=== PATIENT | female | born 2000 | race Caucasian/White ===

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

== ENCOUNTER 2019-02-04 19:27 | Emergency (ER) | payer MEDICAID ==
--- NOTE | 2019-02-04 21:08 | ER Document Report ---
ED Medical Screen (RME) - General Chief Complaint: Abdominal Pain Stated Complaint: ABDOMINAL PAIN Time Seen by Provider: 02/04/19 21:00 Notes: Patient is a 18-year-old female presents to the emergency department with a chief complaint of epigastric and right upper quadrant pain. Patient states she was seen here on January 26 for the same symptoms and was given Bentyl. Patient states she has been taking the Bentyl without relief. Patient states the epigastric and right upper quadrant pain is worse after eating. Patient states she has had nausea without vomiting. Patient reports intermittent diarrhea but has not had any episodes of diarrhea today. Patient denies fever. Patient denies urinary symptoms. Patient reports she has had her appendix removed. Patient states she does get intermittent acid reflux but has not had any issues with this over the past 2 weeks. TRAVEL OUTSIDE OF THE [place] IN LAST 30 DAYS: No - Related Data Allergies/Adverse Reactions: azithromycin Allergy (Verified 01/26/19 07:55) Penicillins Allergy (Verified 01/26/19 07:55) Past Medical History Renal/ Medical History: Reports: Hx Kidney Stones. Denies: Hx Peritoneal Dialysis Past Surgical History: Reports: Hx Appendectomy - Immunizations Immunizations up to date: Yes Hx Diphtheria, Pertussis, Tetanus Vaccination: Yes Physical Exam - Vital signs Vitals: Temp Pulse Resp BP Pulse Ox 98.7 F 83 15 119/68 98 02/04/19 19:33 02/04/19 19:33 02/04/19 19:33 02/04/19 19:33 02/04/19 19:33 - Abdominal Inspection: Normal Distension: No distension Bowel sounds: Normal Tenderness: Tender - Tenderness in RUQ and epigastric area Course - Re-evaluation Re-evalutation: 02/04/19 21:07 Upon initial assessment in triage patient sitting upright in chair, nontoxic- appearing, in no acute distress. Will initiate the appropriate blood work and urinalysis. I have greeted and performed a rapid initial assessment of this patient. A comprehensive ED assessment and evaluation of the patient, analysis of test results and completion of the medical decision making process will be conducted by additional ED providers. - Vital Signs Vital signs: Temp Pulse Resp BP Pulse Ox 98.7 F 83 15 119/68 98 02/04/19 19:33 02/04/19 19:33 02/04/19 19:33 02/04/19 19:33 02/04/19 19:33
[2019-02-04 21:32] LABS: ABSOLUTE EOSINOPHILS # (AUTO) 0.3 10^3/uL (0.0-0.6); ABSOLUTE LYMPHOCYTES (AUTO) 2.8 10^3/uL (0.5-4.7); ABSOLUTE MONOCYTES (AUTO) 0.6 10^3/uL (0.1-1.4); ABSOLUTE NEUT (AUTO) 3.2 10^3/uL (1.7-8.2); BASOPHILS % (AUTO) 0.4 % (0-2); EOSINOPHILS % (AUTO) 4.3 % (0-6); HEMATOCRIT 41.7 % (36.0-47.0); LYMPHOCYTES % (AUTO) 40.6 % (13-45); MEAN CORPUSCULAR HEMOGLOBIN 27.1 pg (27.0-33.4); MEAN CORPUSCULAR HGB CONC 33.5 g/dL (32.0-36.0); MEAN CORPUSCULAR VOLUME 81 fl (80-97); MONOCYTES % (AUTO) 8.1 % (3-13); PLATELET COUNT 196 10^3/uL (150-450); RED BLOOD COUNT 5.16 10^6/uL (3.72-5.28); RED CELL DISTRIBUTION WIDTH 14.5 % (11.5-14.0); SEGMENTED NEUTROPHILS % (AUTO) 46.6 % (42-78); TOTAL CELLS COUNTED % (AUTO) 100 %; WHITE BLOOD COUNT 6.9 10^3/uL (4.0-10.5)
[2019-02-04 21:50] LABS: ALANINE AMINOTRANSFERASE 21 U/L (5-35); ALBUMIN 4.4 g/dL (3.7-5.6); ALKALINE PHOSPHATASE 57 U/L (50-135); ANION GAP 10 (5-19); ASPARTATE AMINO TRANSFERASE 24 U/L (5-30); BILIRUBIN,DIRECT 0.2 mg/dL (0.0-0.4); BILIRUBIN,TOTAL 0.6 mg/dL (0.2-1.3); BLOOD UREA NITROGEN 13 mg/dL (7-20); CALCIUM 9.3 mg/dL (8.4-10.2); CARBON DIOXIDE 25 mmol/L (22-30); CHLORIDE 105 mmol/L (98-107); GLUCOSE 97 mg/dL (75-110); LIPASE 132.2 U/L (23-300); POTASSIUM 4.1 mmol/L (3.6-5.0); SODIUM 139.6 mmol/L (137-145); TOTAL PROTEIN 7.2 g/dL (6.3-8.2)
[2019-02-04 22:03] LABS: APPEARANCE,URINE SLIGHTLY-CLOUDY; BILIRUBIN,URINE NEGATIVE (NEGATIVE); COLOR,URINE YELLOW; GLUCOSE, URINE NEGATIVE (NEGATIVE); KETONES,URINE NEGATIVE (NEGATIVE); LEUKOCYTE ESTERASE,URINE NEGATIVE (NEGATIVE); NITRITE,URINE NEGATIVE (NEGATIVE); PROTEIN,URINE NEGATIVE (NEGATIVE); URINE SPECIFIC GRAVITY 1.021; UROBILINOGEN,URINE NEGATIVE mg/dL (<2.0)
--- NOTE | 2019-02-04 22:34 | ER Document Report ---
ED General - General Chief Complaint: Abdominal Pain Stated Complaint: ABDOMINAL PAIN Time Seen by Provider: 02/04/19 21:00 Notes: Patient is a 18-year-old female presents with complaint of upper abdominal pain. She says that she is epigastric sharp and burning pain. Symptoms are going to right upper quadrant. Sometimes she will have some pain into the right shoulder blade. She says pain occurs mostly with eating. No vomiting. No nausea. No diarrhea. She was seen here a few weeks ago and placed on Bentyl and told to take ibuprofen or Aleve for pain. She says her pain is continued therefore she is come back to the ER. She currently has no other complaints at this time. TRAVEL OUTSIDE OF THE [place] IN LAST 30 DAYS: No - Related Data Allergies/Adverse Reactions: azithromycin Allergy (Verified 01/26/19 07:55) Penicillins Allergy (Verified 01/26/19 07:55) Past Medical History - Social History Smoking Status: Never Smoker Chew tobacco use (# tins/day): No Frequency of alcohol use: None Drug Abuse: None Family History: Reviewed & Not Pertinent Patient has suicidal ideation: No Patient has homicidal ideation: No Renal/ Medical History: Reports: Hx Kidney Stones. Denies: Hx Peritoneal Dialysis Past Surgical History: Reports: Hx Appendectomy - Immunizations Immunizations up to date: Yes Hx Diphtheria, Pertussis, Tetanus Vaccination: Yes Review of Systems - Review of Systems Notes: My Normal Review Basic REVIEW OF SYSTEMS: CONSTITUTIONAL : Denies fever, chills, or sweats. Denies recent illness. CARDIOVASCULAR: Denies chest pain. RESPIRATORY: Denies cough, cold, or chest congestion. Denies shortness of breath, difficulty breathing, or wheezing. GASTROINTESTINAL: Upper abdominal pain. Some nausea. No vomiting. GENITOURINARY: Denies difficulty urinating, painful urination, burning, frequency, or blood in urine. FEMALE GENITOURINARY: Denies vaginal bleeding, abnormal or irregular periods. MUSCULOSKELETAL: Denies neck or back pain or joint pain or swelling. SKIN: Denies rash or skin lesions. NEUROLOGICAL: Denies altered mental status or loss of consciousness. Denies headache. Denies weakness or paralysis or loss of use of either side. Denies problems with gait or speech. Denies sensory or motor loss. ALL OTHER SYSTEMS REVIEWED AND NEGATIVE. Physical Exam - Vital signs Vitals: Temp Pulse Resp BP Pulse Ox 98.7 F 83 15 119/68 98 02/04/19 19:33 02/04/19 19:33 02/04/19 19:33 02/04/19 19:33 02/04/19 19:33 - Notes Notes: General Appearance: Well nourished, alert, cooperative, no acute distress, no obvious discomfort. Well-appearing. Vitals: reviewed, See vital signs table. Head: no swelling or tenderness to the head Eyes: PERRL, EOMI, Conjuctiva clear Mouth: No decreasd moisture Lungs: No wheezing, No rales, No rhonci, No accessory muscle use, good air exchange bilaterally. Heart: Normal rate, Regular rythm, No murmur, no rub Abdomen: Normal BS, soft, No rigidity, moderate right upper quadrant and epigastric tenderness to palpation., No guarding, no rebound, no abdominal masses, no organomegaly Extremities: good pulses in all extremities, no swelling or tenderness in the extremities, no edema. Skin: warm, dry, appropriate color, no rash Neuro: speech clear, oriented x 3, normal affect, responds appropriately to questions. Course - Re-evaluation Re-evalutation: 02/05/19 00:26 Continues look well and feels well. Her ultrasound did not show any overt concerning findings for gallbladder. The wall was equivocal but otherwise there is no stones anything else. I feel the patient is safe to be discharged home. I suspect she has gastritis or bili dyskinesia. I informed her that we will treat her for gastritis and see if her symptoms improve. If they are not improving within a week then she is to follow-up with surgery clinic for further work-up for biliary dyskinesia. I strongly encouraged her return to the ER immediately if she has worsening pain, fevers, vomiting, or feels like she is worsening in any way. Patient agrees with plan and will be discharged home. Dictation of this chart was performed using voice recognition software; therefore, there may be some unintended grammatical errors. - Vital Signs Vital signs: Temp Pulse Resp BP Pulse Ox 98.4 F 70 16 105/64 100 02/05/19 00:04 02/05/19 00:04 02/05/19 00:04 02/05/19 00:04 02/05/19 00:04 - Laboratory Result Diagrams: 02/04/19 21:21 02/04/19 21:21 Laboratory results interpreted by me: 02/04/19 21:21 RDW 14.5 H Discharge - Discharge Clinical Impression: Abdominal pain Qualifiers: Abdominal location: upper abdomen, unspecified Qualified Code(s): R10.10 - Upper abdominal pain, unspecified Condition: Good Disposition: HOME, SELF-CARE Additional Instructions: Your blood work did not show any concerning findings. Your ultrasound looking at your gallbladder did not show any concerning abnormalities with the gallbladder. I suspect that most likely your pain is related to gastritis or nonbleeding ulcer in your stomach. This will cause pain when you eat and drink and also cause you to vomit. Please buy [id number] omeprazole. This is the generic of Prilosec. Please take 20 mg of omeprazole every day for 2 weeks. After 2 weeks you should switch to Pepcid 20 mg a day. I have prescribed Carafate. You can start taking the Carafate if you are not having improvement of your pain after 2-3 days of treatment with the omeprazole. Diet is extremely important in treating this. Please drink non-caffeinated nonacidic fluids for the next 24 hours. After 24 hours you can start eating food again. Please avoid anything that spicy, acidic, or fatty or fried. Please eat only very bland foods such as bread or rice. Please avoid smoking. Please avoid coffee and tea. Please return to the ER immediately if you have worsening pain, fevers, intractable vomiting, or if you ever have any vomiting of blood or black or tarry stools.Avoid any NSAID use such as advil, ibuprofen, motrin, aleve, or naprosyn. Tylenol is safe to take. Pain could also be related to biliary dyskinesia. This is where your gallbladder spasms every time you eat. If you are not having improvement in your symptoms after taking the prescribed medications for 1 week then you should follow-up with the surgery clinic. Phone number to the surgery clinic is under the name "Dr. Riojas" in your discharge paperwork. They can evaluate you and determine if further studies are needed to further evaluate your gallbladder. Please have a low threshold to return to ER if you have worsening pain, fevers, intractable vomiting, or feel like you are worsening in any way. Prescriptions: Sucralfate [Carafate] 1 gm PO ACHS 7 Days oral.susp Forms: Return to Work Referrals: DEE RIOJAS MD [ACTIVE STAFF] - Follow up in 1 week
[2019-02-05 00:15] VITALS: BP 105/64
--- NOTE | 2019-02-05 00:15 | RADIOLOGY REPORT (SQ) ---
EXAM DESCRIPTION: US ABDOMEN DOPPLER LIMITED COMPLETED DATE/TME: 02/04/2019 22:33 CLINICAL HISTORY: 18 years, Female, RUQ abdominal pain COMPARISON: None. TECHNIQUE: Matuet scale sonography of the right upper quadrant abdomen. LIMITATIONS: None. FINDINGS: LIVER: Within normal limits morphology and echogenicity measuring 15.3 cm. GALLBLADDER: Contracted appearance of the gallbladder with equivocal findings for gallbladder wall thickening. No pericholecystic fluid or cholelithiasis. Negative sonographic Sky's sign. BILIARY TRACT: No significant abnormalities noted. The common bile duct measures 3 mm. PANCREAS: Limited evaluation secondary to partial obscuration by overlying bowel gas otherwise within normal limits. KIDNEY: The RIGHT kidney is within normal limits of morphology and echogenicity measuring 10.4 x 3.6 x 5.0 cm. IMPRESSION: 1. Contracted appearance of the gallbladder with equivocal findings for gallbladder wall thickening. 2. No specific sonographic findings noted to suggest etiology of the patient's symptoms. copyright 2010 [employer]- All Rights Reserved
== END 2019-02-05 00:37 | disposition home or self-care (01) ==
LOC: ER 19:27
DX: R10.13 Epigastric pain (principal); R10.816 Epigastric abdominal tenderness; R10.811 Right upper quadrant abdominal tenderness; M89.8X1 Other specified disorders of bone, shoulder; R11.0 Nausea; Z88.1 Allergy status to other antibiotic agents; Z88.0 Allergy status to penicillin; Z87.442 Personal history of urinary calculi; Z90.49 Acquired absence of other specified parts of digestive tract
CPT/HCPCS: 36415; 76705; 80053; 81001; 81025; 83690; 85025; 93976; 99284

== ENCOUNTER 2019-04-12 21:28 | Emergency (ER) | payer MEDICAID ==
--- NOTE | 2019-04-12 21:47 | ER Document Report ---
ED Medical Screen (RME) - General Chief Complaint: Abdominal Cramping Stated Complaint: ABDOMINAL PAIN Time Seen by Provider: 04/12/19 21:42 Mode of Arrival: Ambulatory Information source: Patient Notes: 18-year-old female presents emergency department with abdominal cramps for the past 2 days. Reports urinary frequency and pain with void. Also is unsure if she is . Denies fever vomiting but reports some nausea and diarrhea. Reports she used some Midol without relief of symptoms. Declines Motrin at this time. Dictation of this chart was performed using voice recognition software; therefore, there may be some unintended grammatical errors. I have greeted and performed a rapid initial assessment of this patient. A comprehensive ED assessment and evaluation of the patient, analysis of test results and completion of the medical decision making process will be conducted by additional ED providers. TRAVEL OUTSIDE OF THE [place] IN LAST 30 DAYS: No - Related Data Allergies/Adverse Reactions: azithromycin Allergy (Verified 01/26/19 07:55) Penicillins Allergy (Verified 01/26/19 07:55) Past Medical History Renal/ Medical History: Reports: Hx Kidney Stones. Denies: Hx Peritoneal Dialysis Past Surgical History: Reports: Hx Appendectomy - Immunizations Immunizations up to date: Yes Hx Diphtheria, Pertussis, Tetanus Vaccination: Yes Physical Exam - Vital signs Vitals: Temp Pulse Resp BP Pulse Ox 98.0 F 75 18 113/75 99 04/12/19 21:34 04/12/19 21:34 04/12/19 21:34 04/12/19 21:34 04/12/19 21:34 Course - Vital Signs Vital signs: Temp Pulse Resp BP Pulse Ox 98.0 F 75 18 113/75 99 04/12/19 21:34 04/12/19 21:34 04/12/19 21:34 04/12/19 21:34 04/12/19 21:34
[2019-04-12 22:11] LABS: ABSOLUTE BASOPHILS # (AUTO) 0.1 10^3/uL (0.0-0.2); ABSOLUTE EOSINOPHILS # (AUTO) 0.3 10^3/uL (0.0-0.6); ABSOLUTE LYMPHOCYTES (AUTO) 3.4 10^3/uL (0.5-4.7); ABSOLUTE MONOCYTES (AUTO) 0.5 10^3/uL (0.1-1.4); ABSOLUTE NEUT (AUTO) 3.8 10^3/uL (1.7-8.2); BASOPHILS % (AUTO) 0.9 % (0-2); EOSINOPHILS % (AUTO) 4.1 % (0-6); HEMOGLOBIN 13.5 g/dL (12.0-15.5); LYMPHOCYTES % (AUTO) 42.2 % (13-45); MEAN CORPUSCULAR HEMOGLOBIN 27.3 pg (27.0-33.4); MEAN CORPUSCULAR HGB CONC 33.6 g/dL (32.0-36.0); MEAN CORPUSCULAR VOLUME 81 fl (80-97); MONOCYTES % (AUTO) 5.8 % (3-13); PLATELET COUNT 220 10^3/uL (150-450); RED BLOOD COUNT 4.92 10^6/uL (3.72-5.28); RED CELL DISTRIBUTION WIDTH 13.9 % (11.5-14.0); TOTAL CELLS COUNTED % (AUTO) 100 %; WHITE BLOOD COUNT 8.1 10^3/uL (4.0-10.5)
[2019-04-12 22:22] LABS: ALBUMIN 4.1 g/dL (3.7-5.6); ALKALINE PHOSPHATASE 59 U/L (50-135); ANION GAP 10 (5-19); ASPARTATE AMINO TRANSFERASE 21 U/L (5-30); BILIRUBIN,DIRECT 0.1 mg/dL (0.0-0.4); BILIRUBIN,TOTAL 0.3 mg/dL (0.2-1.3); BLOOD UREA NITROGEN 10 mg/dL (7-20); CALCIUM 9.4 mg/dL (8.4-10.2); CARBON DIOXIDE 26 mmol/L (22-30); CHLORIDE 103 mmol/L (98-107); GLUCOSE 97 mg/dL (75-110); POTASSIUM 3.9 mmol/L (3.6-5.0); TOTAL PROTEIN 6.9 g/dL (6.3-8.2)
[2019-04-12 22:31] LABS: APPEARANCE,URINE CLOUDY; BILIRUBIN,URINE NEGATIVE (NEGATIVE); COLOR,URINE YELLOW; GLUCOSE, URINE NEGATIVE (NEGATIVE); KETONES,URINE NEGATIVE (NEGATIVE); LEUKOCYTE ESTERASE,URINE NEGATIVE (NEGATIVE); NITRITE,URINE NEGATIVE (NEGATIVE); PROTEIN,URINE NEGATIVE (NEGATIVE); URINE SPECIFIC GRAVITY 1.015; UROBILINOGEN,URINE NEGATIVE mg/dL (<2.0)
[2019-04-12] MEDS ORDERED: KETOROLAC TROMETHAMINE 60 MG/2 ML SDV IM ONE (22:55)
--- NOTE | 2019-04-12 22:58 | ER Document Report ---
ED General - General Chief Complaint: Abdominal Pain Stated Complaint: ABDOMINAL PAIN Time Seen by Provider: 04/12/19 21:42 Mode of Arrival: Ambulatory TRAVEL OUTSIDE OF THE [place] IN LAST 30 DAYS: No - HPI Notes: Patient presents with 2 days of sharp pelvic pain that rating. Running. She has been also having minor burning with urination. She is on day 2 of her menstrual period. No medical problems does not take any medications on a daily basis. No concern for any vaginal discharge smells or infection. - Related Data Allergies/Adverse Reactions: azithromycin Allergy (Verified 01/26/19 07:55) Penicillins Allergy (Verified 01/26/19 07:55) Past Medical History - General Information source: Patient - Social History Smoking Status: Never Smoker Chew tobacco use (# tins/day): No Frequency of alcohol use: None Drug Abuse: None Family History: Reviewed & Not Pertinent Patient has suicidal ideation: No Patient has homicidal ideation: No Renal/ Medical History: Reports: Hx Kidney Stones. Denies: Hx Peritoneal Dialysis Past Surgical History: Reports: Hx Appendectomy - Immunizations Immunizations up to date: Yes Hx Diphtheria, Pertussis, Tetanus Vaccination: Yes Review of Systems - Review of Systems Constitutional: No symptoms reported EENT: No symptoms reported Cardiovascular: No symptoms reported Respiratory: No symptoms reported Gastrointestinal: See HPI Genitourinary: No symptoms reported Female Genitourinary: No symptoms reported Musculoskeletal: No symptoms reported Skin: No symptoms reported Hematologic/Lymphatic: No symptoms reported Neurological/Psychological: No symptoms reported Physical Exam - Vital signs Vitals: Temp Pulse Resp BP Pulse Ox 98.0 F 75 18 113/75 99 04/12/19 21:34 04/12/19 21:34 04/12/19 21:34 04/12/19 21:34 04/12/19 21:34 - General General appearance: Appears well, Alert - HEENT Head: Normocephalic, Atraumatic Eyes: Normal Pupils: PERRL - Respiratory Respiratory status: No respiratory distress Chest status: Nontender Breath sounds: Normal Chest palpation: Normal - Cardiovascular Rhythm: Regular Heart sounds: Normal auscultation Murmur: No - Abdominal Inspection: Normal Distension: No distension Bowel sounds: Normal Tenderness: Other - Minor tenderness to palpation of pelvic area below umbilicus no pain with palpation of right upper left lower quadrants. - Back Back: Normal, Nontender. No: CVA tenderness - Extremities General upper extremity: Normal inspection, Normal strength General lower extremity: Normal inspection, Normal strength - Neurological Neuro grossly intact: Yes Cognition: Normal Orientation: AAOx4 Course - Re-evaluation Re-evalutation: 04/12/19 22:57 Well-appearing patient no acute distress has been having sharp pelvic pain for last 2 days with minor dysuria. Urinalysis shows no signs of infection. Labs are unremarkable. Patient is not . Will provide anti-inflammatories and antinausea medication with return precautions in the next 2 to 3 days if symptoms are improving or any development of fevers return for immediate reevaluation. Do not feel this is appendicitis or any other life-threatening illness at this time based on exam and duration of over 2 days with normal vitals and normal labs. - Vital Signs Vital signs: Temp Pulse Resp BP Pulse Ox 98.0 F 75 18 113/75 99 04/12/19 21:34 04/12/19 21:34 04/12/19 21:34 04/12/19 21:34 04/12/19 21:34 - Laboratory Result Diagrams: 04/12/19 21:55 04/12/19 21:55 Laboratory results interpreted by me: 04/12/19 21:55 Urine Blood LARGE H Discharge - Discharge Clinical Impression: Pelvic pain Condition: Good Disposition: HOME, SELF-CARE Instructions: Abdominal Pain ([facility]) Prescriptions: Naproxen [Naprosyn] 500 mg PO BID PRN #15 tablet PRN Reason: Ondansetron [Zofran Odt 4 mg Tablet] 1 tab PO Q4H PRN #15 tab.rapdis PRN Reason: For Nausea/Vomiting
[2019-04-13 00:02] VITALS: BP 98/61
== END 2019-04-13 00:02 | disposition home or self-care (01) ==
LOC: ER 21:28
DX: R10.2 Pelvic and perineal pain (principal); R30.0 Dysuria; Z88.1 Allergy status to other antibiotic agents; Z88.0 Allergy status to penicillin; Z87.442 Personal history of urinary calculi; Z90.49 Acquired absence of other specified parts of digestive tract
CPT/HCPCS: 99283; 96372; 36415; 85025; 81025; 80053; 81001; J1885